=== PATIENT | male | born 1950 | race Caucasian/White ===

== ENCOUNTER 2019-05-24 21:50 | Emergency (ER) | payer OTHER ==
[~2019-05-24] VITALS: Ht 175.3 cm; Wt 63.5 kg
[~2019-05-24 21:50] MED LIST: ATENOLOL 25 MG25 M1; CIPRO500 MG PO; CIPROFLOXACIN500 M1 PO; FLOMAX0.4 MG PO; KEFLEX500 MG PO; NORCO 5-325 TA1 EACH PO; ONDANSETRON HCL4 M2 PO; PERCOCET 5-3251 EACH PO; PERCOCET PO; ZANTAC 150MG T150 M1 PO
[2019-05-24] MEDS ORDERED: NORCO 5-325 TA1 EAC1 PO ×2 (22:23→22:36)
[2019-05-24] MEDS ORDERED: ERYTHROMYCIN E3.5 G2 INTRAOCULR (22:23)
[2019-05-24 22:41] VITALS: BP 145/75
== END 2019-05-24 22:41 | disposition home or self-care (01) ==
LOC: M.ERS 21:50
DX: T15.12XA Foreign body in conjunctival sac, left eye, initial encounter (principal); I10 Essential (primary) hypertension; K21.9 Gastro-esophageal reflux disease without esophagitis; Z87.442 Personal history of urinary calculi; W22.8XXA Striking against or struck by other objects, initial encounter; Y93.89 Activity, other specified; Y92.89 Other specified places as the place of occurrence of the external cause; Y99.8 Other external cause status

== ENCOUNTER 2021-04-08 16:29 | Emergency (ER) | payer OTHER ==
[~2021-04-08] VITALS: Ht 165.1 cm; Wt 77.1 kg
[~2021-04-08 16:29] MED LIST changes: +ERYTHROMYCIN E3.5 G2 INTRAOCULR; +NORCO 5-325 TA1 EAC1 PO
[2021-04-08] MEDS ORDERED: FLOMAX0.4 MG PO (16:44)
[2021-04-08] MEDS ORDERED: OMEPRAZOLE 20 M20 M1 PO (16:45)
[2021-04-08 17:01] LABS: HEMATOCRIT 50.2 % (42.0-52.0); MCH 28.5 pg (26.0-34.0); MCHC 33.9 g/dL (28.0-37.0); MPV 8.6 fl. (7.2-11.1); NUCLEATED RBCS 0 /100WBC; PLATELET COUNT* 254 thou/uL (150-400); RBC 5.97 mil/uL (4.50-6.00); RDW-CV 15.4 % (10.5-14.5); WBC 14.9 thou/uL (4.0-11.0)
[2021-04-08 17:07] LABS: CREATININE 1.3 mg/dL (0.6-1.3); POTASSIUM 3.6 mmol/L (3.5-5.1)
[2021-04-08 17:11] LABS: URINE BILIRUBIN NEGATIVE (Negative); URINE BLOOD 3+ (Negative); URINE CLARITY TURBID; URINE COLOR RED; URINE GLUCOSE-RANDOM NEGATIVE (Negative); URINE KETONES 2+ (Negative); URINE LEUKOCYTES-REFLEX NEGATIVE (Negative); URINE NITRITE-REFLEX NEGATIVE (Negative); URINE PROTEIN TRACE (Negative); URINE UROBILINOGEN 0.2 E.U./dl (0.2-1.0)
[2021-04-08 17:11] LABS: ALBUMIN 3.8 g/dL (3.4-5.0); TOTAL PROTEIN 7.8 g/dL (6.4-8.2)
[2021-04-08 17:22] LABS: SQUAMOUS 0-3 Few /LPF (0-3)
[2021-04-08 17:23] LABS: BACTERIA-REFLEX 1-9 Few /HPF (None Seen); CASTS None Seen /LPF (None Seen); CRYSTALS None Seen /LPF (None Seen); URINE RBC >20 Many /HPF (0-2); URINE WBC-REFLEX 0-5 Rare /HPF (0-5)
[2021-04-08 17:43] LABS: ABSOLUTE LYMPHOCYTES 0.7 thou/uL (0.8-5.3); ABSOLUTE MONOCYTES 1.2 thou/uL (0.0-1.2); LARGE PLATELETS RARE; PLATELET ESTIMATE ADEQUATE
[2021-04-08 22:00] VITALS: BP 132/84
== END 2021-04-08 22:00 | disposition short-term general hospital (02) ==
LOC: M.ERS 16:29
PROVIDERS: Nurse Practitioner Family
DX: N20.1 Calculus of ureter (principal); Z20.822 Contact with and (suspected) exposure to COVID-19; I10 Essential (primary) hypertension; K21.9 Gastro-esophageal reflux disease without esophagitis; Z87.442 Personal history of urinary calculi; Z79.899 Other long term (current) drug therapy

== ENCOUNTER 2021-09-19 00:27 | Emergency (ER) | payer OTHER ==
[~2021-09-19] VITALS: Ht 172.7 cm; Wt 77.1 kg
[~2021-09-19 00:27] MED LIST changes: +OMEPRAZOLE 20 M20 M1 PO
[2021-09-19 01:03] LABS: ABSOLUTE BASOPHILS 0.1 thou/uL (0.0-0.2); ABSOLUTE LYMPHOCYTES 0.7 thou/uL (0.8-5.3); ABSOLUTE MONOCYTES 0.7 thou/uL (0.0-1.2); ABSOLUTE NEUTROPHILS 4.2 thou/uL (1.6-8.1); BASOPHILS 0.9 %; EOSINOPHILS 0.6 %; HEMATOCRIT 49.1 % (42.0-52.0); HEMOGLOBIN 16.4 gm/dL (14.0-18.0); LYMPHOCYTES 12.7 %; MCH 27.9 pg (26.0-34.0); MCHC 33.4 g/dL (28.0-37.0); MCV 83.5 fL (80.0-100.0); MONOCYTES 12.4 %; MPV 9.3 fl. (7.2-11.1); NUCLEATED RBCS 0 /100WBC; PLATELET COUNT* 205 thou/uL (150-400); POLYS 73.4 %; RBC 5.89 mil/uL (4.50-6.00); WBC 5.7 thou/uL (4.0-11.0)
[2021-09-19 01:05] LABS: CALCIUM 8.4 mg/dL (8.5-10.1); CREATININE 1.3 mg/dL (0.6-1.3)
[2021-09-19 01:15] LABS: ALBUMIN 3.2 g/dL (3.4-5.0); TOTAL BILIRUBIN 0.6 mg/dL (<0.1-1.0); TOTAL PROTEIN 7.4 g/dL (6.4-8.2)
[2021-09-19 01:43] LABS: URINE BILIRUBIN NEGATIVE (Negative); URINE BLOOD NEGATIVE (Negative); URINE CLARITY CLEAR; URINE COLOR YELLOW; URINE GLUCOSE-RANDOM NEGATIVE (Negative); URINE KETONES TRACE (Negative); URINE LEUKOCYTES-REFLEX NEGATIVE (Negative); URINE NITRITE-REFLEX NEGATIVE (Negative); URINE PROTEIN NEGATIVE (Negative); URINE SPECIFIC GRAVITY 1.025 (1.005-1.030)
[2021-09-19 04:06] VITALS: BP 103/68
--- NOTE | 2021-09-19 10:48 | EKG ---
[place] [address] ELECTROCARDIOGRAM REPORT Name: DOUGLAS BLOOM Room: [facility]#: [id number] Admission: 09/19/21 Attend Phys: Discharge: 09/19/21 Date of : 52 Date of Service: 09/19/21 0034 Report #: [id number] THIS REPORT FOR: //name// [facility] ED Test Date: 2021-09-19 Test Time: 00:34:13 Pat Name: DOUGLAS BLOOM Department: Room: Gender: Shoe Shiner: [place] : 1950 Requested By: Barbara Weaver Order Number: [id number] MD: Jasbir Rubi Measurements Intervals [place] Rate: 80 P: 23 RI: 185 QRS: 56 QRSD: 76 T: 23 QT: 364 QTc: 420 Interpretive Statements Sinus rhythm Supraventricular bigeminy Compared to ECG 01/16/2016 11:14:27 Atrial premature complex(es) now present ST (T wave) deviation no longer present Electronically Signed On 09-19-2021 10:48:17 [employer]ISING [employer] by Jasbir Rubi [email or web address] <ELECTRONICALLY SIGNED> By: Jasbir Rubi MD, FACC 09/19/21 1048 0034 0034 Jasbir Rubi MD, [facility] /EPI
== END 2021-09-19 04:06 | disposition home or self-care (01) ==
LOC: M.ERS 00:27
PROVIDERS: Emergency Medicine
DX: U07.1 COVID-19 (principal); S61.412A Laceration without foreign body of left hand, initial encounter; R41.82 Altered mental status, unspecified; I10 Essential (primary) hypertension; K21.9 Gastro-esophageal reflux disease without esophagitis; Z87.442 Personal history of urinary calculi; Z79.899 Other long term (current) drug therapy; X58.XXXA Exposure to other specified factors, initial encounter; Y93.89 Activity, other specified; Y92.89 Other specified places as the place of occurrence of the external cause; Y99.8 Other external cause status

== ENCOUNTER 2021-09-24 10:36 | Inpatient (IN) | payer OTHER ==
[~2021-09-24] VITALS: Ht 172.7 cm; Wt 79.6 kg
--- NOTE | ~2021-09-24 | PROC ---
[address] [address] PROCEDURE REPORT Name: DOUGLAS BLOOM Room: [address] ADM IN M.R.#: [id number] Admission: 09/24/21 Attend Phys: Baudilio Jensen Discharge: Date of : 52 Report #: [id number] THIS REPORT FOR: cc: Alfredo Henley MD, John MD [facility],Medical Records Staff ~ For GI report, please see the Provation report in Perceptive 7 content. By: 0701Medical Records Staff ALEXANDER /NOEL
[2021-09-24 11:19] LABS: HEMATOCRIT 53.8 % (42.0-52.0); HEMOGLOBIN 17.8 gm/dL (14.0-18.0); MCH 27.7 pg (26.0-34.0); MCHC 33.2 g/dL (28.0-37.0); MCV 83.4 fL (80.0-100.0); MPV 10.5 fl. (7.2-11.1); NUCLEATED RBCS 0 /100WBC; PLATELET COUNT* 133 thou/uL (150-400); RBC 6.45 mil/uL (4.50-6.00); RDW-CV 14.3 % (10.5-14.5); WBC 9.5 thou/uL (4.0-11.0)
[2021-09-24 11:23] LABS: URINE BILIRUBIN NEGATIVE (Negative); URINE BLOOD 3+ (Negative); URINE CLARITY CLEAR; URINE COLOR YELLOW; URINE GLUCOSE-RANDOM NEGATIVE (Negative); URINE KETONES 1+ (Negative); URINE LEUKOCYTES-REFLEX NEGATIVE (Negative); URINE NITRITE-REFLEX NEGATIVE (Negative); URINE PROTEIN 2+ (Negative); URINE SPECIFIC GRAVITY >= 1.030 (1.005-1.030); URINE UROBILINOGEN 0.2 E.U./dl (0.2-1.0)
[2021-09-24 11:28] LABS: CALCIUM 8.6 mg/dL (8.5-10.1); CREATININE 1.5 mg/dL (0.6-1.3); POTASSIUM 4.5 mmol/L (3.5-5.1)
[2021-09-24 11:29] VITALS: BP 138/90
[2021-09-24] MEDS ORDERED: NORVASC 2.5 MG2.5 M1 PO (11:33)
[2021-09-24] MEDS ORDERED: PROTONIX 20 MG20 MG PO (11:33)
[2021-09-24 11:47] LABS: ALBUMIN 2.4 g/dL (3.4-5.0); TOTAL BILIRUBIN 1.1 mg/dL (<0.1-1.0); TOTAL PROTEIN 7.1 g/dL (6.4-8.2)
[2021-09-24 11:54] LABS: SQUAMOUS NONE SEEN /LPF (0-3)
[2021-09-24 11:55] LABS: URINE RBC 0-2 Rare /HPF (0-2); URINE WBC-REFLEX None Seen /HPF (0-5)
[2021-09-24 11:56] LABS: COARSE GRANULAR CASTS 0-3 Few /LPF (None Seen); CRYSTALS None Seen /LPF (None Seen); MUCUS 0-3 Light strn/LPF (None Seen)
[2021-09-24 12:22] LABS: ABSOLUTE LYMPHOCYTES 0.1 thou/uL (0.8-5.3); ABSOLUTE MONOCYTES 0.8 thou/uL (0.0-1.2); ABSOLUTE NEUTROPHILS 8.6 thou/uL (1.6-8.1)
[2021-09-24 12:23] LABS: GIANT PLATELETS FEW; PLATELET ESTIMATE ADEQUATE
[2021-09-24 13:31] LABS: BE -6.2 mmol/L (-2 to +3); PCO2 30.2 mmHg (35.0-45.0); pH 7.375 (7.340-7.450)
[2021-09-24 13:33] LABS: PO2 353.5 mmHg (75.0-100.0)
[2021-09-24 18:31] VITALS: BP 108/73
[2021-09-24 20:33] VITALS: BP 104/73
[2021-09-24 21:01] VITALS: BP 100/70
[2021-09-24 22:01] VITALS: BP 90/66
[2021-09-24 23:00] VITALS: BP 96/65
[2021-09-25] VITALS (61 sets, daily range): BP systolic 88–129; BP diastolic 55–87
[2021-09-25 05:58] LABS: HEMATOCRIT 48.7 % (42.0-52.0); HEMOGLOBIN 16.3 gm/dL (14.0-18.0); MCH 28.1 pg (26.0-34.0); MCHC 33.5 g/dL (28.0-37.0); MCV 83.9 fL (80.0-100.0); MPV 10.3 fl. (7.2-11.1); RBC 5.81 mil/uL (4.50-6.00); RDW-CV 14.6 % (10.5-14.5); WBC 9.1 thou/uL (4.0-11.0)
[2021-09-25 06:08] LABS: ALBUMIN 2.1 g/dL (3.4-5.0); CALCIUM 8.6 mg/dL (8.5-10.1); CREATININE 1.2 mg/dL (0.6-1.3); POTASSIUM 4.2 mmol/L (3.5-5.1); TOTAL PROTEIN 6.4 g/dL (6.4-8.2)
[2021-09-25 12:10] LABS: BE -8.7 mmol/L (-2 to +3); PCO2 31.8 mmHg (35.0-45.0); PO2 114.1 mmHg (75.0-100.0)
[2021-09-25 12:42] LABS: ABSOLUTE LYMPHOCYTES 0.4 thou/uL (0.8-5.3); ABSOLUTE MONOCYTES 0.6 thou/uL (0.0-1.2); ABSOLUTE NEUTROPHILS 8.8 thou/uL (1.6-8.1); BASOPHILS 0.5 %; HEMATOCRIT 46.4 % (42.0-52.0); HEMOGLOBIN 15.4 gm/dL (14.0-18.0); LYMPHOCYTES 3.7 %; MCH 27.8 pg (26.0-34.0); MCHC 33.2 g/dL (28.0-37.0); MCV 83.8 fL (80.0-100.0); MONOCYTES 6.2 %; MPV 10.8 fl. (7.2-11.1); NUCLEATED RBCS 0 /100WBC; PLATELET COUNT* 115 thou/uL (150-400); POLYS 89.6 %; RBC 5.54 mil/uL (4.50-6.00); RDW-CV 14.7 % (10.5-14.5); WBC 9.8 thou/uL (4.0-11.0)
[2021-09-25 13:00] LABS: APTT 36.5 Seconds (25.0-31.3); INR 1.3; PROTIME 12.8 Seconds (9.20-11.50)
--- NOTE | 2021-09-25 13:24 | 2DMMODE ---
[place] [address] 2 D/M-MODE ECHOCARDIOGRAM Name: WOLFDOUGLAS L Room: [address] IN .R.#: [id number] Admission: 09/24/21 Attend Phys: Jamar Rhodes Discharge: Date of : 52 Date of Service: 09/25/21 1324 Report #: [id number] THIS REPORT FOR: cc: Alfredo Henley MD, John MD Holkins, John M. MD [facility] ~ APPROVED REPORT Study performed: 09/25/2021 10:32:46 EXAM: Comprehensive 2D, Doppler, and color-flow Echocardiogram Patient Location: In-Patient Room #: 001 Status: routine BSA: 1.86 HR: 81 bpm BP: 104/66 mmHg Rhythm: Atrial Fibrillation Other Information Study Quality: Good Indications Atrial Fibrillation 2D Dimensions IVSd: 12.88 (7-11mm) LVOT Diam: 20.61 (18-24mm) LVDd: 28.71 mm PWd: 14.86 (7-11mm) Ascending Ao: 34.75 (22-36mm) LVDs: 16.36 (25-40mm) Aortic Root: 34.45 mm Volumes Left Atrial Volume (Systole) LA ESV Index: 18.40 mL/m2 Aortic Valve AoV Peak Amador.: 0.84 m/s AO Peak Gr.: 2.84 mmHg LVOT Max P.64 mmHg AO Mean Gr.: 1.52 mmHg LVOT Mean P.23 mmHg LVOT Max V: 0.81 m/s AO V2 VTI: 11.80 cm LVOT Mean V: 0.50 m/s CEM (VTI): 4.34 cm2 LVOT V1 VTI: 15.34 [place] [address] 2 D/M-MODE ECHOCARDIOGRAM Name: DOUGLAS BLOOM Room: [address] IN [facility]#: [id number] Admission: 09/24/21 Attend Phys: Jamar Rhodes Discharge: Date of : 52 Date of Service: 09/25/21 1324 Report #: [id number] Pulmonary Valve PV Peak Amador.: 0.66 m/s PV Peak Gr.: 1.74 mmHg Left Ventricle The left ventricle is normal size. There is normal LV segmental wall motion. There is normal left ventricular wall thickness. Left ventricular systolic function is normal. The left ventricular ejection fraction is within the normal range. LVEF is 60-65%. This study is not technically sufficient to allow evaluation of the LV diastolic function due to atrial fibrillation. Right Ventricle The right ventricle is normal size. The right ventricular systolic function is normal. Atria Left atrium is mildly dilated. The right atrium size is normal. Aortic Valve The aortic valve is normal in structure. No aortic regurgitation is present. There is no aortic valvular stenosis. Mitral Valve The mitral valve is normal in structure. Trace to mild mitral regurgitation. No evidence of mitral valve stenosis. Tricuspid Valve The tricuspid valve is normal in structure. Unable to assess PA pressure. Trace tricuspid regurgitation. Pulmonic Valve The pulmonary valve is normal in structure. There is no pulmonic valvular regurgitation. Great Vessels The aortic root is normal in size. IVC is normal in size and collapses >50% with inspiration. Pericardium There is no pericardial effusion. <Conclusion> The left ventricle is normal size. There is normal left ventricular wall thickness. Left ventricular systolic [place] [address] 2 D/M-MODE ECHOCARDIOGRAM Name: WOLFDOUGLAS L Room: [address] IN [facility]#: [id number] Admission: 09/24/21 Attend Phys: Jamar Rhodes Discharge: Date of : 52 Date of Service: 09/25/21 1324 Report #: [id number] The left ventricular ejection fraction is within the normal range. LVEF is 60-65%. This study is not technically sufficient to allow evaluation of the LV diastolic function due to atrial fibrillation. The right ventricle is normal size. Left atrium is mildly dilated. The right atrium size is normal. The aortic valve is normal in structure. The mitral valve is normal in structure. Trace to mild mitral regurgitation. The tricuspid valve is normal in structure. IVC is normal in size and collapses >50% with inspiration. There is no pericardial effusion. There is normal LV segmental wall motion. <ELECTRONICALLY SIGNED> By: Alfredo Dowling MD, [facility] 09/25/21 1324 1324 1324 Alfredo Dowling MD, FACC /INF
[2021-09-25 13:26] LABS: CALCIUM 8.4 mg/dL (8.5-10.1); CREATININE 1.1 mg/dL (0.6-1.3); POTASSIUM 4.3 mmol/L (3.5-5.1)
[2021-09-25 13:38] LABS: LIPASE 139 U/L (73-393); TRIGLYCERIDE 226 mg/dL (<150)
--- NOTE | 2021-09-25 15:51 | CON ---
[address] [address] CONSULTATION Name: DOUGLAS BLOOM Room: [address] IN .R.#: [id number] Admission: 09/24/21 Attend Phys: Baudilio Jensen Discharge: Date of : 52 Report #: [id number] THIS REPORT FOR: cc: Alfredo Henley MD, John MD Pervez,Maximino RUIZ ~ DATE OF CONSULTATION: 09/25/2021 Consult has been requested by Dr. Rhodes. INDICATION FOR CONSULTATION: Acute hypoxemic respiratory failure/COVID-19. HISTORY OF PRESENT ILLNESS: A 71-year-old gentleman, past medical history is as mentioned below, I am not fully clear as to whether the patient has a previous history of atrial fibrillation or not. He is not vaccinated for COVID-19 recently. In fact, came to the Emergency Room a few days ago was positive for COVID, had had a brief confusion as well. Subsequently, he improved and was discharged home. The patient now presented again yesterday. At this time, the O2 saturation was 88% on room air. The patient also was noted to be in AFib with RVR and had altered mental status and therefore required to be endotracheally intubated. He currently is on the ventilator. He is ventilating and oxygenating adequately 50% FiO2, 5 of PEEP but O2 saturation is close to 100%. There is a compensated metabolic acidosis on his arterial blood gas yesterday. He also is in acute renal failure on presentation with a creatinine of 1.5. This appears to be resolving with creatinine returning to 1.2. He has had AFib with RVR overnight. His heart rate is just around 100 now. His chest x-ray shows some mild atypical infiltrates; however, I do not see any large consolidative infiltrates. There is also no increase in pulmonary vascular congestion. PAST MEDICAL HISTORY: Hypertension, gastroesophageal reflux disease, kidney stones. He is in atrial fibrillation now, I am not fully clear as to whether this is new or old. SOCIAL HISTORY: There is no known history of smoking, ethanol abuse, or drug abuse. CURRENT MEDICATIONS: List in [place] reviewed. HOME MEDICATIONS: List in [place] reviewed. FAMILY HISTORY: There are other family members who have COVID-19 as well. ALLERGIES: [place] [address] CONSULTATION Name: WOLFDOUGLAS L Room: [address]#: [id number] Admission: 09/24/21 Attend Phys: Baudilio Jensen Discharge: Date of : 52 Report #: [id number] PHYSICAL EXAMINATION: GENERAL: He is sedated with propofol. VITAL SIGNS: His blood pressure is on the lower side at around 90/60, heart rate is 100. He is on 50% FiO2, 5 of PEEP, assist control mode of ventilation, tidal volume 500, rate set at 16. He is breathing at around 20-22, afebrile with a temperature of 36.4. HEENT: Head is normocephalic and atraumatic. Endotracheal tube is in good position. NECK: Does not show raised JVP, asymmetry, mass or lymph nodes. CHEST: Symmetrical expansion on inspection and palpation. On auscultation, chest is clear. HEART: Irregular, but there is no murmur. ABDOMEN: Soft and nontender. EXTREMITIES: Lower extremities show no edema, no calf tenderness. SKIN: Dry and intact. NEUROLOGIC: He did move all extremities bilaterally equally to pain. LABORATORY DATA: Lab work in [facility] and is reviewed. See also discussion as above regarding labs. Arterial blood gases also in [facility] reviewed and also discussed above. ASSESSMENT AND PLAN: 1. Acute hypoxemic respiratory failure. For now, we will keep him on assist control mode of ventilation. Titrate down FiO2. We will start Precedex and then we will start cutting back on propofol and then reassess as to where we stand. If he does well, then potentially a weaning trial could be considered today; however, it is noted that he has a metabolic acidosis on the blood gas yesterday; therefore, I will do an arterial blood gas now and verify that this is corrected before considering weaning. Also, he has a heart rate needs to be monitored and I will only consider a weaning trial if off propofol and only on Precedex and normal heart rate could be maintained. Follow propofol related labs. 2. COVID-19. He is on Decadron. Recommend starting remdesivir. Follow LFTs. 3. Pulmonary infiltrates. There are only fairly vague reticular infiltrates noted on chest x-rays secondary to COVID-19. I do not see any large lobar infiltrates. He is already on cefepime and received a dose of Levaquin yesterday. I will send off more cultures and serologies; however, I did not make a change to the antibiotics at this time. 4. Atrial fibrillation with rapid ventricular response/evaluation for thromboembolic phenomena. I am not fully clear as to whether the atrial fibrillation is new or old. Also, certainly it will be possible that the patient had thromboembolism. I will go ahead and do labs including a D-dimer now. If the D-dimer is elevated, I will assess for thromboembolism and I will in that case also be inclined to go ahead and anticoagulate for the possibility [address] [address] CONSULTATION Name: WOLFDOUGLAS Saul Room: [address] ADM IN M.R.#: [id number] Admission: 09/24/21 Attend Phys: Baudilio Jensen Discharge: Date of : 52 Report #: [id number] of thromboembolism; otherwise, we will defer to the Cardiology Service regarding whether anticoagulation is considered due to atrial fibrillation. I requested a magnesium level to be added to the last BMP. If low, we will replace. 5. Altered mental status. We will reassess when able to take off propofol. 6. Metabolic acidosis/acute renal insufficiency/mild elevation in sodium level. I intend to continue IV fluids, but switched over to a hypotonic fluid. We ordered an ABG now and then we will review and then decide as to whether bicarbonate should be added to the IV fluids. 7. Hyperglycemia, insulin sliding scale. 8. Deep venous thrombosis prophylaxis, Lovenox. 9. Gastrointestinal prophylaxis. He is currently on Pepcid. If platelets drop further, then I will consider switching this over to Protonix. 10. Clostridium difficile prophylaxis, Lactinex. Thanks for this consultation. The patient is critically ill at this time. Total time spent providing critical care to this patient today exceeds 45 minutes. <ELECTRONICALLY SIGNED> By: Maximino Moore MD 09/25/21 1551 1112 MD jamila Sandoval
[2021-09-26] VITALS (74 sets, daily range): BP systolic 102–145; BP diastolic 69–87
[2021-09-26 05:23] LABS: ABSOLUTE BASOPHILS 0.1 thou/uL (0.0-0.2); BASOPHILS 1.3 %; POLYS 91.2 %
[2021-09-26 05:25] LABS: ABSOLUTE LYMPHOCYTES 0.2 thou/uL (0.8-5.3); ABSOLUTE MONOCYTES 0.6 thou/uL (0.0-1.2); ABSOLUTE NEUTROPHILS 9.7 thou/uL (1.6-8.1); HEMATOCRIT 45.9 % (42.0-52.0); HEMOGLOBIN 15.1 gm/dL (14.0-18.0); LYMPHOCYTES 1.4 %; MCH 27.6 pg (26.0-34.0); MCHC 32.8 g/dL (28.0-37.0); MCV 84.4 fL (80.0-100.0); MONOCYTES 6.1 %; MPV 10.5 fl. (7.2-11.1); NUCLEATED RBCS 0 /100WBC; PLATELET COUNT* 126 thou/uL (150-400); RBC 5.45 mil/uL (4.50-6.00); RDW-CV 14.9 % (10.5-14.5); WBC 10.6 thou/uL (4.0-11.0)
[2021-09-26 05:46] LABS: PHOSPHORUS* 3.1 mg/dL (2.5-4.9)
[2021-09-26 06:09] LABS: ALBUMIN 1.8 g/dL (3.4-5.0); CALCIUM 8.3 mg/dL (8.5-10.1); MAGNESIUM 2.4 mg/dL (1.8-2.4); TOTAL BILIRUBIN 0.7 mg/dL (<0.1-1.0); TOTAL PROTEIN 5.6 g/dL (6.4-8.2)
[2021-09-26 10:00] LABS: BE -2.5 mmol/L (-2 to +3); PCO2 27.9 mmHg (35.0-45.0); PO2 113.4 mmHg (75.0-100.0); pH 7.464 (7.340-7.450)
[2021-09-26 13:52] LABS: BE -3.2 mmol/L (-2 to +3); PCO2 27.9 mmHg (35.0-45.0); PO2 107.2 mmHg (75.0-100.0); pH 7.455 (7.340-7.450)
[2021-09-26 16:05] LABS: CALCIUM 8.2 mg/dL (8.5-10.1); CREATININE 1.1 mg/dL (0.6-1.3); MAGNESIUM 2.3 mg/dL (1.8-2.4); POTASSIUM 4.3 mmol/L (3.5-5.1)
[2021-09-27] VITALS (101 sets, daily range): BP systolic 120–185; BP diastolic 79–102
[2021-09-27 06:40] LABS: ABSOLUTE BASOPHILS 0.1 thou/uL (0.0-0.2); ABSOLUTE LYMPHOCYTES 0.1 thou/uL (0.8-5.3); ABSOLUTE MONOCYTES 0.5 thou/uL (0.0-1.2); ABSOLUTE NEUTROPHILS 7.1 thou/uL (1.6-8.1); BASOPHILS 0.8 %; HEMATOCRIT 42.7 % (42.0-52.0); HEMOGLOBIN 13.8 gm/dL (14.0-18.0); LYMPHOCYTES 1.3 %; MCH 27.3 pg (26.0-34.0); MCHC 32.3 g/dL (28.0-37.0); MCV 84.5 fL (80.0-100.0); MONOCYTES 6.9 %; MPV 10.9 fl. (7.2-11.1); NUCLEATED RBCS 0 /100WBC; PLATELET COUNT* 159 thou/uL (150-400); RBC 5.05 mil/uL (4.50-6.00); RDW-CV 14.9 % (10.5-14.5); WBC 7.8 thou/uL (4.0-11.0)
[2021-09-27 06:53] LABS: ALBUMIN 2.1 g/dL (3.4-5.0); CALCIUM 8.1 mg/dL (8.5-10.1); MAGNESIUM 2.6 mg/dL (1.8-2.4); POTASSIUM 4.6 mmol/L (3.5-5.1); TOTAL BILIRUBIN 0.8 mg/dL (<0.1-1.0); TOTAL PROTEIN 5.4 g/dL (6.4-8.2)
[2021-09-27 07:29] LABS: BE -3.9 mmol/L (-2 to +3); PCO2 28.1 mmHg (35.0-45.0); PO2 100.1 mmHg (75.0-100.0); pH 7.442 (7.340-7.450)
[2021-09-27 13:16] LABS: BE -4.8 mmol/L (-2 to +3); PCO2 29.5 mmHg (35.0-45.0); PO2 99.3 mmHg (75.0-100.0); pH 7.413 (7.340-7.450)
[2021-09-28] VITALS (81 sets, daily range): BP systolic 124–171; BP diastolic 72–93
[2021-09-28 07:10] LABS: HEMATOCRIT 41.9 % (42.0-52.0); HEMOGLOBIN 13.9 gm/dL (14.0-18.0); MCH 27.3 pg (26.0-34.0); MCHC 33.1 g/dL (28.0-37.0); MCV 82.5 fL (80.0-100.0); MPV 10.2 fl. (7.2-11.1); RBC 5.08 mil/uL (4.50-6.00); RDW-CV 14.6 % (10.5-14.5); WBC 10.8 thou/uL (4.0-11.0)
[2021-09-28 07:20] LABS: CALCIUM 8.1 mg/dL (8.5-10.1); CREATININE 0.9 mg/dL (0.6-1.3); POTASSIUM 4.2 mmol/L (3.5-5.1); TOTAL BILIRUBIN 1.2 mg/dL (<0.1-1.0); TOTAL PROTEIN 5.1 g/dL (6.4-8.2)
[2021-09-28 16:43] LABS: BE -0.6 mmol/L (-2 to +3); PO2 87.5 mmHg (75.0-100.0); pH 7.469 (7.340-7.450)
[2021-09-29] VITALS (57 sets, daily range): BP systolic 138–170; BP diastolic 75–94
[2021-09-29 05:34] LABS: HEMATOCRIT 42.9 % (42.0-52.0); HEMOGLOBIN 13.9 gm/dL (14.0-18.0); MCH 26.8 pg (26.0-34.0); MCHC 32.3 g/dL (28.0-37.0); MPV 10.4 fl. (7.2-11.1); NUCLEATED RBCS 0 /100WBC; PLATELET COUNT* 202 thou/uL (150-400); RBC 5.17 mil/uL (4.50-6.00); WBC 12.9 thou/uL (4.0-11.0)
[2021-09-29 06:13] LABS: CALCIUM 8.4 mg/dL (8.5-10.1); CREATININE 0.9 mg/dL (0.6-1.3); MAGNESIUM 2.6 mg/dL (1.8-2.4); PHOSPHORUS* 3.5 mg/dL (2.5-4.9); POTASSIUM 4.3 mmol/L (3.5-5.1); TOTAL BILIRUBIN 1.5 mg/dL (<0.1-1.0); TOTAL PROTEIN 5.4 g/dL (6.4-8.2)
[2021-09-29 06:42] LABS: ABSOLUTE LYMPHOCYTES 0.3 thou/uL (0.8-5.3); ABSOLUTE MONOCYTES 0.4 thou/uL (0.0-1.2); ABSOLUTE NEUTROPHILS 12.3 thou/uL (1.6-8.1)
[2021-09-29 06:46] LABS: PLATELET ESTIMATE ADEQUATE
[2021-09-29 06:47] LABS: BURR CELLS 1+; HYPOCHROMASIA 1+
[2021-09-29 23:06] LABS: MYCOPLASMA PNEUMONIA IgM <770 U/mL (0-769)
[2021-09-30] VITALS (9 sets, daily range): BP systolic 132–147; BP diastolic 80–99
[2021-09-30 06:55] LABS: HEMATOCRIT 42.5 % (42.0-52.0); HEMOGLOBIN 13.9 gm/dL (14.0-18.0); MCHC 32.7 g/dL (28.0-37.0); MCV 82.8 fL (80.0-100.0); MPV 10.9 fl. (7.2-11.1); RBC 5.13 mil/uL (4.50-6.00); WBC 16.5 thou/uL (4.0-11.0)
[2021-09-30 07:03] LABS: CALCIUM 8.1 mg/dL (8.5-10.1); CREATININE 0.8 mg/dL (0.6-1.3); POTASSIUM 4.4 mmol/L (3.5-5.1)
[2021-09-30 11:44] LABS: DIRECT BILIRUBIN 1.1 mg/dL (<0.1-0.3); TOTAL BILIRUBIN 2.2 mg/dL (<0.1-1.0); TOTAL PROTEIN 5.2 g/dL (6.4-8.2)
--- NOTE | 2021-09-30 16:15 | EKG ---
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 : 1950 Requested By: Juani Moreno Order Number: [id number] Chinedu MD: Jasbir Rubi Measurements Intervals [place] Rate: 64 P: 32 [place]: 185 QRS: 15 QRSD: 74 T: 23 QT: 450 QTc: 465 Interpretive Statements Sinus rhythm Borderline low voltage, extremity leads Compared to ECG 09/19/2021 00:34:13 Atrial premature complex(es) no longer present Electronically Signed On 09-30-2021 16:15:06 TECHNICAL OPERATIONS MANAGER by Jasbir Rubi [email or web address] <ELECTRONICALLY SIGNED> By: Jasbir Rubi MD, [facility] 09/30/21 1615 0954 0954 Jasbir Rubi MD, [facility] /EPI
[2021-10-01 00:57] VITALS: BP 137/79
[2021-10-01 04:00] VITALS: BP 125/75
[2021-10-01 04:40] LABS: ABSOLUTE LYMPHOCYTES 0.4 thou/uL (0.8-5.3); ABSOLUTE MONOCYTES 1.2 thou/uL (0.0-1.2); ABSOLUTE NEUTROPHILS 12.6 thou/uL (1.6-8.1); BASOPHILS 0.1 %; HEMATOCRIT 40.9 % (42.0-52.0); HEMOGLOBIN 13.5 gm/dL (14.0-18.0); MCH 27.1 pg (26.0-34.0); MCHC 33.1 g/dL (28.0-37.0); MCV 81.9 fL (80.0-100.0); MONOCYTES 8.5 %; MPV 10.4 fl. (7.2-11.1); NUCLEATED RBCS 0 /100WBC; PLATELET COUNT* 234 thou/uL (150-400); POLYS 88.4 %; RDW-CV 14.9 % (10.5-14.5); WBC 14.3 thou/uL (4.0-11.0)
[2021-10-01 04:46] LABS: ALBUMIN 1.8 g/dL (3.4-5.0); CALCIUM 7.9 mg/dL (8.5-10.1); CREATININE 0.9 mg/dL (0.6-1.3); MAGNESIUM 2.6 mg/dL (1.8-2.4); POTASSIUM 4.4 mmol/L (3.5-5.1); TOTAL BILIRUBIN 1.6 mg/dL (<0.1-1.0); TOTAL PROTEIN 5.2 g/dL (6.4-8.2)
[2021-10-01 04:48] LABS: ALBUMIN 1.9 g/dL (3.4-5.0); CREATININE 0.8 mg/dL (0.6-1.3); POTASSIUM 4.5 mmol/L (3.5-5.1)
[2021-10-01 08:00] VITALS: BP 131/80
[2021-10-01 11:08] LABS: MYCOPLASMA PNEUMONIA IgG 472 U/mL (0-99)
[2021-10-01 13:30] VITALS: BP 155/98
[2021-10-01 17:16] VITALS: BP 136/89
[2021-10-01 21:38] VITALS: BP 146/87
[2021-10-02] VITALS: BP 125/82
[2021-10-02 04:00] VITALS: BP 129/80
[2021-10-02 08:00] VITALS: BP 143/89
[2021-10-02 12:00] VITALS: BP 138/90
[2021-10-02 16:00] VITALS: BP 128/75
[2021-10-02 20:00] VITALS: BP 118/75
[2021-10-03] VITALS: BP 150/86
[2021-10-03 04:00] VITALS: BP 113/78
[2021-10-03 05:37] LABS: ABSOLUTE LYMPHOCYTES 0.3 thou/uL (0.8-5.3); ABSOLUTE MONOCYTES 1.1 thou/uL (0.0-1.2); ABSOLUTE NEUTROPHILS 15.1 thou/uL (1.6-8.1); BASOPHILS 0.2 %; HEMATOCRIT 41.5 % (42.0-52.0); HEMOGLOBIN 13.4 gm/dL (14.0-18.0); LYMPHOCYTES 2.1 %; MCH 26.8 pg (26.0-34.0); MCHC 32.3 g/dL (28.0-37.0); MCV 82.9 fL (80.0-100.0); MONOCYTES 6.6 %; MPV 10.5 fl. (7.2-11.1); NUCLEATED RBCS 0 /100WBC; PLATELET COUNT* 226 thou/uL (150-400); POLYS 91.1 %; RBC 5.01 mil/uL (4.50-6.00); RDW-CV 14.8 % (10.5-14.5); WBC 16.6 thou/uL (4.0-11.0)
[2021-10-03 06:04] LABS: ALBUMIN 1.8 g/dL (3.4-5.0); CREATININE 0.8 mg/dL (0.6-1.3); MAGNESIUM 2.6 mg/dL (1.8-2.4); POTASSIUM 4.7 mmol/L (3.5-5.1); TOTAL BILIRUBIN 1.4 mg/dL (<0.1-1.0); TOTAL PROTEIN 4.8 g/dL (6.4-8.2)
[2021-10-03 08:00] VITALS: BP 124/81
[2021-10-03 12:51] VITALS: BP 133/76
[2021-10-03 20:10] VITALS: BP 127/72
[2021-10-04] VITALS: BP 136/84
[2021-10-04 04:00] VITALS: BP 150/80
[2021-10-04 09:00] VITALS: BP 137/76
[2021-10-04 12:00] VITALS: BP 135/77
[2021-10-04 13:38] LABS: CALCIUM 8.2 mg/dL (8.5-10.1); CREATININE 0.7 mg/dL (0.6-1.3); MAGNESIUM 2.2 mg/dL (1.8-2.4); POTASSIUM 4.6 mmol/L (3.5-5.1)
[2021-10-04 16:00] VITALS: BP 120/64
[2021-10-04 20:03] VITALS: BP 143/80
[2021-10-05] VITALS: BP 96/54
[2021-10-05 04:00] VITALS: BP 125/79
[2021-10-05 09:00] VITALS: BP 117/70
--- NOTE | 2021-10-05 09:28 | CON ---
[address] [address] CONSULTATION Name: DOUGLAS BLOOM Room: [address] IN .R.#: [id number] Admission: 09/24/21 Attend Phys: Baudilio Jensen Discharge: Date of : 52 Report #: [id number] THIS REPORT FOR: cc: Alfredo Henley MD, John MD [place], Roxane S. DO ~ DATE OF CONSULTATION: 10/03/2021 NEUROLOGY CONSULT HISTORY OF PRESENT ILLNESS: The patient is a 71-year-old male who presents with altered mental status. Apparently, the patient was diagnosed with COVID on 09/19. At that time, the patient came to the Emergency Room, but wanted to go home, so he left. The patient was then readmitted on 09/24 for altered mental status. The patient was noted to have an oxygen saturation of 88% on room air. The patient himself is unable to provide any history. I spoke to his , Page who told me that before getting COVID, he was a normal functioning human being. He was able to carry on a conversation. He enjoyed working outside. She said that yesterday when she came to see him, he was able to get out a few words. She asked him if he would be okay and he told her that he would and smiled at her. PAST MEDICAL HISTORY: Atrial fibrillation, hypertension, gastroesophageal reflux, nephrolithiasis. PAST SURGICAL HISTORY: Negative. MEDICATIONS: In hospital, amiodarone 400 mg b.i.d., Eliquis 5 mg b.i.d., dexamethasone 6 mg IV push daily, probiotic t.i.d., pantoprazole 40 mg IV push daily. ALLERGIES: None. VITAL SIGNS: Temperature 36.4, pulse rate 57, respiratory rate 20, blood pressure 124/81, bedside pulse oximetry 94% on 2 liters. LABORATORY DATA: Hematology: White blood cell count 16.6, hemoglobin 13.4, hematocrit 41.5, MCV 82.9, platelet count 226,000. INR 1.3. Urinalysis: 2+ protein, 1+ ketones, 3+ blood. Chemistry: Sodium 141, potassium 4.7, chloride 108, carbon dioxide 27, BUN 42, creatinine 0.8, GFR 96, glucose 142. Lactic acid 1.9, calcium 8, phosphorus 3.5, magnesium 2.6, total bilirubin 0.4, direct bilirubin 1.1, AST 59, ALT 293, alkaline phosphatase 88. Ammonia level 10. Creatine kinase 280. BNP 966. Total protein 4.8, albumin 1.8, prealbumin 19.5. Triglycerides 185, lipase 387. Procalcitonin 1.7. TSH 0.589, free T4 1.01. [place] [address] CONSULTATION Name: WOLFDOUGLAS L Room: [address] IN [facility]#: [id number] Admission: 09/24/21 Attend Phys: Baudilio Jensen Discharge: Date of : 52 Report #: [id number] COVID positive. 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 NEUROLOGIC: The patient is awake, however, he is nonverbal at this time. On inspection, cranial nerves 2-12 appear grossly intact. The patient does not follow commands, however, I was able to raise his arms above his head. He was able to hold them there for a second. I raised each leg off the bed, but he would not hold them there. Reflexes are trace throughout. Plantar responses are flexor. The patient does not cooperate with [id number]. IMPRESSION: The patient has had significant change in his mentation. I have ordered a B12 level, MRI head and electroencephalogram. The patient has a history of atrial fibrillation, however, he is now on Eliquis 5 mg b.i.d. The question is whether this is related to COVID; however, a stroke needs to be considered in this patient given his history of atrial fibrillation. I thank you for your kind referral of the patient and we will continue to follow him with you. <ELECTRONICALLY SIGNED> By: Birgit Olson DO 10/05/21 0928 0844 0941Birgit Olson DO /nt
[2021-10-05 12:00] VITALS: BP 102/72
[2021-10-05 16:00] VITALS: BP 137/76
[2021-10-05 20:28] VITALS: BP 145/79
[2021-10-06 05:49] VITALS: BP 131/77
[2021-10-06 08:43] VITALS: BP 120/68
[2021-10-06 12:00] VITALS: BP 119/68
[2021-10-06 16:00] VITALS: BP 126/59
[2021-10-06 20:23] VITALS: BP 137/74
[2021-10-07 00:42] VITALS: BP 147/72
[2021-10-07 04:40] VITALS: BP 139/71
[2021-10-07 04:57] LABS: HEMATOCRIT 39.2 % (42.0-52.0); HEMOGLOBIN 13.1 gm/dL (14.0-18.0); MCH 27.3 pg (26.0-34.0); MCHC 33.3 g/dL (28.0-37.0); MCV 81.8 fL (80.0-100.0); MPV 10.7 fl. (7.2-11.1); RBC 4.79 mil/uL (4.50-6.00); RDW-CV 14.2 % (10.5-14.5); WBC 11.2 thou/uL (4.0-11.0)
[2021-10-07 05:02] LABS: APTT 28.1 Seconds (25.0-31.3); INR 1.2; PROTIME 12.6 Seconds (9.20-11.50)
[2021-10-07 08:00] VITALS: BP 118/67
[2021-10-07 12:00] VITALS: BP 164/77
[2021-10-07 16:00] VITALS: BP 129/63
[2021-10-07 16:46] LABS: CSF PROTEIN 73.5 mg/dl (15-45)
[2021-10-07 16:59] LABS: CSF COLOR COLORLESS; VOLUME 13 ml
[2021-10-07 17:00] LABS: CSF CLARITY CLEAR; CSF RBC 1 /mm3; CSF WBC 0 /mm3 (0-10)
--- NOTE | 2021-10-07 18:02 | EEG ---
[address] [address] EEG STUDY REPORT Name: DOUGLAS BLOOM Room: [address] IN M.R.#: [id number] Admission: 09/24/21 Attend Phys: Baudilio Jensen Discharge: Date of : 52 Report #: [id number] THIS REPORT FOR: cc: Alfredo Henley MD, John MD Khosla,Tai Alba MD ~ DATE OF SERVICE: 10/03/2021 This patient is being evaluated for the possibility of seizure. EEG was done by placing the electrode by standard 10-20 system of electrode placement. Both referential and sequential montages were used for recording. A lot of artifact is present as the patient continued to move and there is a lot of eye movement artifact. Background activity appears to be about 11 Hz and 30 microvolt. The patient went to sleep and that is associated with bilateral slowing and vertex sharp waves. Photic stimulation is unremarkable. Throughout the record, no active epileptiform activity was noticed. IMPRESSION: This patient's EEG does not demonstrate any clear-cut epileptiform activity. It might be mentioned that EEG can be normal in a patient with seizure disorder. Thank you very much for this referral. <ELECTRONICALLY SIGNED> By: Tai Heath MD 10/07/21 1802 0744 0751Pmarques Heath MD /kamille
[2021-10-07 20:00] VITALS: BP 126/72
[2021-10-08] VITALS: BP 147/85
[2021-10-08 04:00] VITALS: BP 124/78
[2021-10-08 08:30] VITALS: BP 121/71
[2021-10-08 11:50] VITALS: BP 135/75
[2021-10-08 12:00] VITALS: BP 101/57
[2021-10-08 14:11] LABS: HEMATOCRIT 40.9 % (42.0-52.0); HEMOGLOBIN 13.6 gm/dL (14.0-18.0); MCH 27.3 pg (26.0-34.0); MCHC 33.2 g/dL (28.0-37.0); MCV 82.3 fL (80.0-100.0); MPV 10.1 fl. (7.2-11.1); RBC 4.97 mil/uL (4.50-6.00); RDW-CV 14.7 % (10.5-14.5); WBC 11.7 thou/uL (4.0-11.0)
[2021-10-08 14:43] LABS: ALBUMIN 1.8 g/dL (3.4-5.0); CALCIUM 7.9 mg/dL (8.5-10.1); CREATININE 0.8 mg/dL (0.6-1.3); POTASSIUM 4.5 mmol/L (3.5-5.1); TOTAL BILIRUBIN 1.7 mg/dL (<0.1-1.0); TOTAL PROTEIN 5.4 g/dL (6.4-8.2)
[2021-10-08 21:25] VITALS: BP 127/73
[2021-10-09] VITALS: BP 151/73
[2021-10-09 04:00] VITALS: BP 122/77
[2021-10-09 07:55] VITALS: BP 107/62
--- NOTE | 2021-10-09 11:44 | EKG ---
[place] [address] ELECTROCARDIOGRAM REPORT Name: DOUGLAS BLOOM Room: [address] IN .R.#: [id number] Admission: 09/24/21 Attend Phys: Jamar Rhodes Discharge: Date of : 52 Date of Service: 10/08/[address] Report #: [id number] THIS REPORT FOR: //name// [facility] Test Date: 2021-10-08 Test Time: 09:02:24 Pat Name: DOUGLAS BLOOM Department: Room: [facility] Gender: M Head Animal Trainer: AF : 1950 Requested By: Juani Moreno Order Number: [id number] Reading MD: Alfredo Dowling Measurements Intervals [place] Rate: 53 P: -7 SD: 197 QRS: 11 QRSD: 77 T: 43 QT: 466 QTc: 438 Interpretive Statements Sinus rhythm Atrial premature complexes Compared to ECG 09/30/2021 09:54:17 Atrial premature complex(es) now present Electronically Signed On 10-09-2021 11:44:21 PRODUCT PROMOTER RETAIL PET by Alfredo Dowling [email or web address] <ELECTRONICALLY SIGNED> By: Alfredo Dowling MD, [facility] 10/09/21 1144 0902 0902 Alfredo Dowling MD, [facility] /EPI
--- NOTE | 2021-10-09 14:08 | EKG ---
[place] [address] ELECTROCARDIOGRAM REPORT Name: DOUGLAS BLOOM Room: [address] IN .R.#: [id number] Admission: 09/24/21 Attend Phys: Jamar Rhodes Discharge: Date of : 52 Date of Service: 10/09/21 1319 Report #: [id number] THIS REPORT FOR: //name// [facility] Test Date: 2021-10-09 Test Time: 13:19:42 Pat Name: DOUGLAS BLOOM Department: Room: [facility] Gender: M Tile Burner: : 1950 Requested By: Juani Moreno Order Number: [id number] Reading MD: Alfredo Dowling Measurements Intervals [place] Rate: 50 P: 55 PA: 191 QRS: 67 QRSD: 331 T: 33 QT: 459 QTc: 419 Interpretive Statements Sinus rhythm Atrial premature complexes Consider left atrial enlargement Probable left ventricular hypertrophy Compared to ECG 10/08/2021 09:02:24 No significant interval change Electronically Signed On 10-09-2021 14:07:51 EYEDOTTER by Alfredo Dowling [email or web address] <ELECTRONICALLY SIGNED> By: Alfredo Dowling MD, [facility] 10/09/21 1407 1319 1319 Alfredo Dowling MD, [facility] /EPI
[2021-10-09 15:03] VITALS: BP 137/68
[2021-10-09 16:00] VITALS: BP 117/65
[2021-10-10 01:31] VITALS: BP 119/71
[2021-10-10 05:50] VITALS: BP 105/63
[2021-10-10 08:10] VITALS: BP 116/66
[2021-10-10 10:34] VITALS: BP 116/66
[2021-10-10 15:07] LABS: CSF VDRL Non Reactive (Non Rea:<1:1)
[2021-10-10 16:00] VITALS: BP 126/75
[2021-10-11] VITALS: BP 121/75
[2021-10-11 04:00] VITALS: BP 128/68
[2021-10-11 04:37] LABS: HEMATOCRIT 40.6 % (42.0-52.0); HEMOGLOBIN 13.4 gm/dL (14.0-18.0); MCH 27.2 pg (26.0-34.0); MCHC 32.9 g/dL (28.0-37.0); MCV 82.8 fL (80.0-100.0); MPV 10.3 fl. (7.2-11.1); NUCLEATED RBCS 0 /100WBC; PLATELET COUNT* 161 thou/uL (150-400); RBC 4.91 mil/uL (4.50-6.00); WBC 9.6 thou/uL (4.0-11.0)
[2021-10-11 05:12] LABS: ALBUMIN 1.8 g/dL (3.4-5.0); CREATININE 0.7 mg/dL (0.6-1.3); POTASSIUM 4.3 mmol/L (3.5-5.1); TOTAL BILIRUBIN 1.6 mg/dL (<0.1-1.0)
[2021-10-11 06:21] LABS: ABSOLUTE LYMPHOCYTES 0.5 thou/uL (0.8-5.3); ABSOLUTE MONOCYTES 0.2 thou/uL (0.0-1.2); ABSOLUTE NEUTROPHILS 8.9 thou/uL (1.6-8.1)
[2021-10-11 06:22] LABS: PLATELET ESTIMATE ADEQUATE
[2021-10-11 08:00] VITALS: BP 111/69
[2021-10-11 12:30] VITALS: BP 115/70
[2021-10-11 16:14] VITALS: BP 107/69
[2021-10-11 20:00] VITALS: BP 117/79
[2021-10-12 00:18] VITALS: BP 117/70
[2021-10-12 04:00] VITALS: BP 136/67
[2021-10-12 06:07] LABS: ABSOLUTE LYMPHOCYTES 0.4 thou/uL (0.8-5.3); ABSOLUTE MONOCYTES 0.8 thou/uL (0.0-1.2); ABSOLUTE NEUTROPHILS 8.2 thou/uL (1.6-8.1); BASOPHILS 0.1 %; EOSINOPHILS 0.2 %; HEMATOCRIT 39.6 % (42.0-52.0); HEMOGLOBIN 13.2 gm/dL (14.0-18.0); LYMPHOCYTES 4.3 %; MCH 27.6 pg (26.0-34.0); MCHC 33.2 g/dL (28.0-37.0); MONOCYTES 8.9 %; MPV 10.7 fl. (7.2-11.1); NUCLEATED RBCS 0 /100WBC; PLATELET COUNT* 149 thou/uL (150-400); POLYS 86.5 %; RBC 4.78 mil/uL (4.50-6.00); RDW-CV 14.8 % (10.5-14.5); WBC 9.4 thou/uL (4.0-11.0)
[2021-10-12 06:21] LABS: ALBUMIN 1.8 g/dL (3.4-5.0); CALCIUM 7.9 mg/dL (8.5-10.1); CREATININE 0.7 mg/dL (0.6-1.3); POTASSIUM 4.2 mmol/L (3.5-5.1); TOTAL BILIRUBIN 1.4 mg/dL (<0.1-1.0); TOTAL PROTEIN 5.1 g/dL (6.4-8.2)
[2021-10-12 12:13] VITALS: BP 102/68
[2021-10-12 15:53] VITALS: BP 117/74
[2021-10-12 20:14] VITALS: BP 133/83
[2021-10-13] VITALS: BP 156/93
[2021-10-13 04:00] VITALS: BP 122/73
[2021-10-13 09:09] VITALS: BP 116/63
[2021-10-13 12:00] VITALS: BP 101/71
[2021-10-13 14:49] LABS: CALCIUM 8.1 mg/dL (8.5-10.1); CREATININE 0.7 mg/dL (0.6-1.3); POTASSIUM 4.3 mmol/L (3.5-5.1); TOTAL BILIRUBIN 1.5 mg/dL (<0.1-1.0); TOTAL PROTEIN 4.8 g/dL (6.4-8.2)
[2021-10-13 21:34] VITALS: BP 95/65
[2021-10-14] VITALS (17 sets, daily range): BP systolic 71–115; BP diastolic 42–69
[2021-10-14 04:43] LABS: HEMATOCRIT 35.4 % (42.0-52.0); HEMOGLOBIN 11.6 gm/dL (14.0-18.0); MCH 27.5 pg (26.0-34.0); MCHC 32.7 g/dL (28.0-37.0); MCV 84.3 fL (80.0-100.0); MPV 11.8 fl. (7.2-11.1); NUCLEATED RBCS 0 /100WBC; PLATELET COUNT* 188 thou/uL (150-400); RDW-CV 15.3 % (10.5-14.5); WBC 20.1 thou/uL (4.0-11.0)
[2021-10-14 07:16] LABS: ABSOLUTE NEUTROPHILS 18.1 thou/uL (1.6-8.1)
[2021-10-14 07:17] LABS: BURR CELLS 1+; OVALOCYTES 1+
[2021-10-14 07:18] LABS: PLATELET ESTIMATE ADEQUATE
--- NOTE | 2021-10-15 10:16 | EKG ---
[place] [address] ELECTROCARDIOGRAM REPORT Name: DOUGLAS BLOOM Room: [address] IN [facility].#: [id number] Admission: 09/24/21 Attend Phys: Jamar Rhodes Discharge: 10/14/21 Date of : 52 Date of Service: 10/14/21 0444 Report #: [id number] THIS REPORT FOR: //name// [facility] Test Date: 2021-10-14 Test Time: 04:44:57 Pat Name: DOUGLAS BLOOM Department: Room: [address] Gender: M Reservoir Engineering Manager: - : 1950 Requested By: Jamar Rhodes Order Number: [id number] Chinedu MD: Jasbir Rubi Measurements Intervals [place] Rate: 94 P: -8 MO: 160 QRS: 88 QRSD: 82 T: 46 QT: 340 QTc: 426 Interpretive Statements Sinus rhythm Borderline right axis deviation Borderline ST depression, anterolateral leads Compared to ECG 10/09/2021 13:19:42 ST (T wave) deviation now present Atrial premature complex(es) no longer present Electronically Signed On 10-15-2021 10:16:32 GREETING CARD MAKER by Jasbir Rubi [email or web address] <ELECTRONICALLY SIGNED> By: Jasbir Rubi MD, FACC 10/15/21 1016 0444 0444 Jasbir Rubi MD, FAC /EPI
--- NOTE | 2021-10-16 16:02 | CON ---
[address] [address] CONSULTATION Name: DOUGLAS BLOOM Room: [address] IN M.R.#: [id number] Admission: 09/24/21 Attend Phys: Baudilio Jensen Discharge: 10/14/21 Date of : 52 Report #: [id number] THIS REPORT FOR: cc: Alfredo Henley MD, John MD Namin,Vania Bhat MD ~ DATE OF CONSULTATION: 10/07/2021 REQUESTING PHYSICIAN: Jamar Rhodes MD. REASON FOR CONSULTATION: Aspiration and inability to thrive. HISTORY OF PRESENT ILLNESS: This is a 71-year-old male who apparently had COVID last month and during the same time, he had some mental status changes, for which he was taken to the emergency room by his . During the initial emergency room visit, stroke was ruled out. The patient was sent back home, but since he was not doing well, his brought him back to the hospital. Currently, the patient cannot communicate. His is sitting by the bedside, has given me the history. There is some damages to brain, of unknown etiology, which was noted in the MRI. The patient also had a spinal tap today with results pending. PAST MEDICAL HISTORY: Significant for history of gastroesophageal reflux disease, nephrolithiasis, hypertension, recent COVID infection, mental status changes. ALLERGIES: No known drug allergy. MEDICATIONS: Please refer to MAR. SOCIAL HISTORY: The patient used to live at home and apparently was fully functional. He currently cannot communicate. FAMILY HISTORY: Noncontributory. PHYSICAL EXAMINATION: VITAL SIGNS: Reveals blood pressure of 164/77, respirations 16, pulse 50, temperature 97.3. LUNGS: Clear. CARDIOVASCULAR: Regular. ABDOMEN: Soft, nontender, nondistended. Bowel sounds are positive. LABORATORY DATA: Reveal sodium of 136, potassium 4.6, BUN is 38, creatinine is 0.7, AST is 59, ALT 293, alkaline phosphatase is 88, total bilirubin is 1.4. [place] [address] CONSULTATION Name: DOUGLAS BLOOM Room: [address]#: [id number] Admission: 09/24/21 Attend Phys: Baudilio Jensen Discharge: 10/14/21 Date of : 52 Report #: [id number] Lipase 387. WBC is 11.2 with hemoglobin of 13.1 and platelets of 183. IMAGING: MRI was obtained, which showed degenerative changes at multiple levels of varying neural foraminal stenosis as seen. ASSESSMENT AND PLAN: The patient with mental status changes, probably due to hypoperfusion of the brain, who cannot communicate. He has failed his swallow study and we were consulted to evaluate him for PEG tube. I spent 45 minutes with this and obtained history and described the PEG tube placement with all the risks and benefits. The patient's appeared to have good understanding of the procedure. She want us to go forward and schedule him for the procedure. <ELECTRONICALLY SIGNED> By: Vania Bean MD 10/16/21 1602 1608 13Vania Bean MD /nt
[2021-10-22 10:09] LABS: HSV 1 DNA None detected; HSV 2 DNA None detected
--- NOTE | 2021-10-25 12:03 | EEG ---
[address] [address] EEG STUDY REPORT Name: DOUGLAS BLOOM Room: [address] M.R.#: [id number] Admission: 09/24/21 Attend Phys: Baudilio Jensen Discharge: 10/14/21 Date of : 52 Report #: [id number] THIS REPORT FOR: cc: Alfredo Henley MD, John MD Khosla,Tai Alba MD ~ DATE OF SERVICE: 10/03/2021 The patient is being evaluated for altered mental status. EEG was done by placing the electrode by standard 10-20 system of electrode placement. Both referential and sequential montages were used for recording. Background activity in this patient's EEG is about 7-8 Hz and 15 microvolt. The patient went to sleep that is associated with bilateral slowing. Photic stimulation is unremarkable. Throughout the record, no active epileptiform activity was noticed. IMPRESSION: This patient's EEG is abnormal because it is disorganized and poorly formed. That is a nonspecific finding which can occur with encephalopathy, effect of psychotropic medication, dementia, etc. Clinical correlation is recommended. <ELECTRONICALLY SIGNED> By: Tai Heath MD 10/25/21 [id number] Heath MD /nt
== END 2021-10-14 09:20 | DRG 870 ==
LOC: M.ERS 10:36 → M.2W 15:03 → M.TBA-ER 15:03 → M.ICU 15:03 → M.ORTHSURG 09-30 16:30 → M.2W 10-03 16:23 → M.ORTHSURG 10-09 06:15 → M.2W 10-10 21:55
PROVIDERS: Emergency Medicine Emergency Medical Services; Internal Medicine; Internal Medicine Critical Care Medicine; Internal Medicine Nephrology; Nurse Practitioner Family; Pediatrics; Psychiatry & Neurology Neuromuscular Medicine; ADMIT Internal Medicine; ATTEND Internal Medicine
DX: A41.89 Other specified sepsis (principal); U07.1 COVID-19; J12.82 Pneumonia due to coronavirus disease 2019; G93.41 Metabolic encephalopathy; J96.01 Acute respiratory failure with hypoxia; N17.0 Acute kidney failure with tubular necrosis; E87.1 Hypo-osmolality and hyponatremia; N30.00 Acute cystitis without hematuria; B17.9 Acute viral hepatitis, unspecified; Z79.01 Long term (current) use of anticoagulants; R73.9 Hyperglycemia, unspecified; I48.0 Paroxysmal atrial fibrillation; I10 Essential (primary) hypertension